=== PATIENT | female | born 1995 | race Caucasian/White ===

== ENCOUNTER → 2016-06-23 | Outpatient (CLI) | payer OTHER ==
[~2016-06-23] MED LIST: MTR600X PO; OXYC5TAB PO; PRENTAB26 PO; SUBUTEX PO
[2016-06-23 15:41] LABS: BASO % 0.2 %; BASO ABS # 0.01 K/uL (0-0.2); EOS % 2.6 %; HEMATOCRIT 37.4 % (37-47); IG% 0.2 %; MEAN CELL VOLUME 72.2 fL (80-100); MEAN CORPUSCULAR HEMOGLOBIN 24.3 pg (25-34); MEAN CORPUSCULAR HGB CONC 33.7 g/dl (32-36); MONO % 6.8 %; PLATELET COUNT 307 K/uL (130-400); RED BLOOD COUNT 5.18 M/uL (4.2-5.4); WHITE BLOOD COUNT 5.33 K/uL (4.8-10.8)
[2016-06-23 16:20] LABS: COMPLETE YES; POIKILOCYTOSIS PRESENT
[2016-06-23 16:21] LABS: LYMPH % 43.2 %
[2016-06-23 17:26] LABS: ALT/SGPT 92 U/L (12-78); BLOOD UREA NITROGEN 8 mg/dl (7-18); BUN/CREATININE RATIO 12.9 (10-20); CALCIUM 9.1 mg/dl (8.5-10.1); CARBON DIOXIDE 27 mmol/L (21-32); CHLORIDE 105 mmol/L (98-107); CREATININE 0.63 mg/dl (0.60-1.20); GLUCOSE 89 mg/dl (70-99); POTASSIUM 3.7 mmol/L (3.5-5.1); SODIUM 141 mmol/L (136-145)
[2016-06-23 17:45] LABS: ALB/GLOB RATIO 0.9 (0.9-2); ALKALINE PHOSPHATASE 79 U/L (45-117); AST/SGOT 73 U/L (15-37)
[2016-06-25 22:34] LABS: HEPATITIS C RNA TMA QUAL Detected
[2016-06-29 20:16] LABS: HEPATITIS C VIRAL RNA BY PCR 540000 IU/ML (<15); HEPATITIS C VIRAL RNA(LOG) PCR 5.73 LOG IU/ML (<1.18); LIVER FIBR APOLIPOPROTEIN A-1 140 mg/dL (101-198); LIVER FIBROS ALPHA-2-MACROGLOB 205 mg/dL (106-279); LIVER FIBROSIS GGT 23 U/L (3-40); NECROINFLAMMATION ACT GRADE A1; NECROINFLAMMATION ACT SCORE 0.33
== END | disposition home or self-care (01) ==
LOC: C.LAB1850 14:38
PROVIDERS: ATTEND Internal Medicine Infectious Disease
DX: B18.2 Chronic viral hepatitis C (principal)